=== PATIENT | female | born 1950 | race African-American/Black ===

== ENCOUNTER 2024-02-02 09:18 | Inpatient (IN) | payer MEDICARE ==
[~2024-02-02] VITALS: Ht 172.7 cm; Wt 75.7 kg
[2024-02-02 10:15] LABS: BASOPHILS % 0.4 % (0.0-2.0); EOSINOPHILS % 0.4 % (0.0-5.0); HEMATOCRIT. 35.6 % (36.0-48.0); HEMOGLOBIN. 11.8 g/dL (12.0-16.0); LYMPHOCYTES % 16.3 % (20.0-50.0); MEAN CORPUSCULAR HEMOGLOBIN 29.4 pg (28.0-32.0); MEAN CORPUSCULAR HGB CONC 33.1 g/dL (31.0-37.0); MEAN PLATELET VOLUME 7.4 fl (7.4-10.4); MONOCYTES % 10.5 % (2.0-8.0); NEUTROPHILS % 72.4 % (40.0-76.0); PLATELET 208 x1000/uL (130-400); WHITE BLOOD COUNT 8.1 x1000/uL (4.5-11.0)
[2024-02-02 10:25] LABS: D-DIMER 2.79 mg/L FEU (<0.50); PROTHROMBIN TIME 10.9 sec (9.6-11.0)
[2024-02-02 10:26] LABS: CHLORIDE 107 mEq/L (98-107); SODIUM 142 mEq/L (136-145)
[2024-02-02 10:27] LABS: CALCIUM 8.7 mg/dL (8.7-10.4); CARBON DIOXIDE 33 mEq/L (21-32)
[2024-02-02 10:32] LABS: CREATININE 0.7 mg/dL (0.6-1.0); GLUCOSE 149 mg/dL (70-105); UREA NITROGEN BLOOD 11 mg/dL (9-23)
[2024-02-02] MEDS: CEFTRIAXONE 1GM/50ML 50 ML IV NR (11:18)
[2024-02-02 11:28] LABS: CLARITY URINE TURBID (CLEAR); COLOR URINE DARK YELLOW (YELLOW); GLUCOSE URINE NEGATIVE (NEGATIVE); KETONES URINE TRACE (NEGATIVE); LEUKOCYTE ESTERASE URINE 1+ (NEGATIVE); NITRITE URINE NEGATIVE (NEGATIVE); OCCULT BLOOD URINE 2+ (NEGATIVE); PH URINE 5.5 (4.5-8.0); PROTEIN URINE 2+ (NEGATIVE)
[2024-02-02 11:31] LABS: BG BASE EXCESS 5.6 mmol/L (-2.0-3.0); BG CARBOXYHEMOGLOBIN 0.7 % (0.5-1.5); BG DEOXYHEMOGLOBIN 4.6 % (0.0-5.0); BG FRACTION INSPIRED OXYGEN 21; BG HCO3 ACT 29.9 mmol/L (21.0-28.0); BG METHEMOGLOBIN 0.3 % (0.5-1.5); BG OXYGEN SATURATION 95.4 % (94.0-98.0); BG OXYHEMOGLOBIN 94.4 % (94.0-98.0); BG PCO2 42.2 mmHg (32.0-45.0); BG PH 7.468 (7.350-7.450); BG PO2 74.3 mmHg (83.0-108.0); BG SAMPLE SITE LEFT RADIAL; BG TOTAL HEMOGLOBIN 12.7 g/dL (12.0-16.0); BG VENT MODE ROOM AIR
[2024-02-02 11:34] LABS: ALANINE AMINOTRANSFERASE 16 IU/L (10-49); ALBUMIN 3.5 g/dL (3.2-4.8); ASPARTATE AMINOTRANSFERASE 27 IU/L (<34); PROTEIN TOTAL 6.2 g/dL (6.0-8.3)
[2024-02-02 11:41] LABS: TROPONIN I HIGH SENSITIVITY 93 ng/L (3.0-34)
[2024-02-02 11:50] LABS: *AMPHETAMINES SCREEN URINE NEGATIVE (NEGATIVE); *BARBITURATES SCREEN URINE NEGATIVE (NEGATIVE); *BENZODIAZEPINES SCREEN URINE NEGATIVE (NEGATIVE); *COCAINE SCREEN URINE NEGATIVE (NEGATIVE); METHADONE URINE SCREEN NEGATIVE (NEGATIVE); OPIATES URINE SCREEN NEGATIVE (NEGATIVE)
[2024-02-02 11:51] LABS: CANNABINOID URINE SCREEN NEGATIVE (NEGATIVE); ECSTASY MDMA SCREEN URINE NEGATIVE (NEGATIVE); PHENCYCLIDINE URINE SCREEN NEGATIVE (NEGATIVE)
[2024-02-02] MEDS: AZITHROMYCIN 500MG/250ML 250 ML IV NR (11:56)
[2024-02-02 11:57] LABS: BACTERIA URINE 4+; MUCUS URINE 1+ /lpf (< = 2+); SQUAMOUS EPITHELIAL CELL URINE 3+ /lpf (RARE/1+)
[2024-02-02 11:59] LABS: RBC URINE 0-2 /hpf (0-2)
[2024-02-02] MEDS ORDERED: GUAIFENESIN 200MG/10ML SUGAR FREE UDC PO PRN (14:45)
[2024-02-02] MEDS ORDERED: CLONIDINE 0.1MG TABLET PO PRN (14:45)
[2024-02-02] MEDS ORDERED: ACETAMINOPHEN 325MG TABLET PO PRN (14:45)
[2024-02-02] MEDS ORDERED: IPRATROPIUM/ALBUTEROL 0.5-3(2.5)MG/3ML NEB HHN PRN (14:45)
[2024-02-02] MEDS ORDERED: FUROSEMIDE 40MG/4ML VIAL IVP ONE (17:30)
[2024-02-02] MEDS: FUROSEMIDE 20MG/2ML VIAL IVP SCH (17:45)
[2024-02-02] MEDS: AZITHROMYCIN 500 MG TABLET PO SCH (18:17)
[2024-02-02 22:10] VITALS: BP 155/87; PULSE 59; RESP 20; TEMP 35.9176
[2024-02-02] MEDS: FAMOTIDINE 20MG/2ML VIAL IV SCH (22:16)
[2024-02-03] VITALS: BP 152/90; PULSE 97; RESP 18; TEMP 35.89176; O2SAT 95
[2024-02-03 01:13] LABS: IRON 35 ug/dL (50-170)
[2024-02-03 01:14] LABS: TRIGLYCERIDE 61 mg/dL (0-150)
[2024-02-03 01:15] LABS: LDL CHOLESTEROL 30 mg/dL (5-100)
[2024-02-03 01:16] LABS: ALBUMIN 3.6 g/dL (3.2-4.8); CHOLESTEROL 86 mg/dL (<200); CREATINE KINASE 443 IU/L (34-145); HDL CHOLESTEROL 41 mg/dL (>65); TOTAL IRON BINDING CAPACITY 238 ug/dl (250-425)
[2024-02-03 01:17] LABS: T4 FREE 1.43 ng/dL (0.89-1.76)
[2024-02-03 01:18] LABS: THYROID STIMULATING HORMONE 1.02 uIU/mL (0.55-4.78)
[2024-02-03 01:43] LABS: TROPONIN I HIGH SENSITIVITY 91 ng/L (3.0-34)
[2024-02-03 04:00] VITALS: BP 143/83; PULSE 65; RESP 18; TEMP 35.89176; O2SAT 96
[2024-02-03 07:10] LABS: BASOPHILS % 0.6 % (0.0-2.0); EOSINOPHILS % 0.9 % (0.0-5.0); HEMATOCRIT. 37.9 % (36.0-48.0); HEMOGLOBIN. 12.3 g/dL (12.0-16.0); LYMPHOCYTES % 17.2 % (20.0-50.0); MEAN CORPUSCULAR HGB CONC 32.5 g/dL (31.0-37.0); MEAN CORPUSCULAR VOLUME 89.4 fL (81.0-99.0); MEAN PLATELET VOLUME 7.9 fl (7.4-10.4); MONOCYTES % 6.6 % (2.0-8.0); NEUTROPHILS % 74.7 % (40.0-76.0); PLATELET 230 x1000/uL (130-400); RED BLOOD CELL COUNT 4.24 mill/uL (4.2-5.4); RED CELL DISTRIBUTION WIDTH 14.5 % (11.6-14.6); WHITE BLOOD COUNT 7.7 x1000/uL (4.5-11.0)
[2024-02-03] MEDS: BLOOD SUGAR DIAGNOSTIC STRIP TEST SCH (07:12)
[2024-02-03 07:15] LABS: CHLORIDE 104 mEq/L (98-107); POTASSIUM 3.1 mEq/L (3.5-5.1); SODIUM 142 mEq/L (136-145)
[2024-02-03 07:16] LABS: CARBON DIOXIDE 33 mEq/L (21-32)
[2024-02-03 07:17] LABS: CALCIUM 8.6 mg/dL (8.7-10.4)
[2024-02-03 07:21] LABS: CREATININE 0.6 mg/dL (0.6-1.0); GLUCOSE 162 mg/dL (70-105); UREA NITROGEN BLOOD 12 mg/dL (9-23)
[2024-02-03 07:23] LABS: CREATINE KINASE 379 IU/L (34-145)
[2024-02-03 07:33] LABS: HEPATITIS B SURFACE ANTIGEN NEGATIVE (Negative)
[2024-02-03 07:54] LABS: HEPATITIS C AB NON REACTIVE (Neg) (Negative)
[2024-02-03 08:00] VITALS: BP 140/78; PULSE 87; RESP 18; TEMP 36.50292; O2SAT 98
[2024-02-03 08:04] LABS: TROPONIN I HIGH SENSITIVITY 92 ng/L (3.0-34)
[2024-02-03] MEDS: INSULIN LISPRO 100 UNITS/ML SUBCUT SCH (08:09)
[2024-02-03] MEDS ORDERED: CEFTRIAXONE 1GM/50ML 50 ML IV SCH (11:00)
[2024-02-03 12:00] VITALS: BP 143/84; PULSE 95; RESP 20; TEMP 36.114; O2SAT 100
[2024-02-03 16:00] VITALS: BP 125/84; PULSE 96; RESP 18; TEMP 36.16956; O2SAT 99
[2024-02-03] MEDS: POTASSIUM CHLORIDE 20MEQ TABLET SR PO NR (17:09)
[2024-02-03] MEDS: ASPIRIN 81MG TABLET PO SCH (17:09)
[2024-02-03] MEDS: CEFTRIAXONE 1GM/50ML 50 ML IV SCH (17:10)
[2024-02-03] MEDS: FUROSEMIDE 20MG/2ML VIAL IVP SCH (17:10)
[2024-02-03 20:44] VITALS: BP 137/78; PULSE 101; RESP 18; TEMP 36.16956; O2SAT 96
[2024-02-03] MEDS: INSULIN GLARGINE 100 UNITS/ML SUBCUT SCH (21:50)
[2024-02-03] MEDS: ATORVASTATIN CALCIUM 40MG TABLET PO SCH (21:57)
[2024-02-04 00:39] VITALS: BP 151/81; PULSE 100; RESP 18; TEMP 36.28068; O2SAT 98
[2024-02-04 04:00] VITALS: BP 128/73; PULSE 94; RESP 18; TEMP 36.16956; O2SAT 95
[2024-02-04 08:00] VITALS: BP 123/68; PULSE 93; RESP 18; TEMP 36.05844; O2SAT 97
[2024-02-04] MEDS: FERROUS SULFATE 325MG TABLET PO SCH (08:39)
[2024-02-04 09:22] LABS: CHLORIDE 105 mEq/L (98-107); POTASSIUM 3.3 mEq/L (3.5-5.1); SODIUM 144 mEq/L (136-145)
[2024-02-04 09:23] LABS: CARBON DIOXIDE 34 mEq/L (21-32)
[2024-02-04 09:28] LABS: CREATININE 0.8 mg/dL (0.6-1.0); GLUCOSE 63 mg/dL (70-105)
[2024-02-04 09:29] LABS: UREA NITROGEN BLOOD 12 mg/dL (9-23)
[2024-02-04 09:30] LABS: BASOPHILS % 0.7 % (0.0-2.0); EOSINOPHILS % 1.2 % (0.0-5.0); HEMATOCRIT. 36.1 % (36.0-48.0); HEMOGLOBIN. 11.6 g/dL (12.0-16.0); MEAN CORPUSCULAR HEMOGLOBIN 28.5 pg (28.0-32.0); MEAN CORPUSCULAR HGB CONC 32.1 g/dL (31.0-37.0); MEAN CORPUSCULAR VOLUME 88.6 fL (81.0-99.0); MEAN PLATELET VOLUME 7.8 fl (7.4-10.4); MONOCYTES % 9.4 % (2.0-8.0); NEUTROPHILS % 65.7 % (40.0-76.0); PLATELET 262 x1000/uL (130-400); RED BLOOD CELL COUNT 4.07 mill/uL (4.2-5.4); RED CELL DISTRIBUTION WIDTH 14.3 % (11.6-14.6); WHITE BLOOD COUNT 7.6 x1000/uL (4.5-11.0)
[2024-02-04] MEDS: POTASSIUM CHLORIDE 20MEQ TABLET SR PO SCH (11:39)
[2024-02-04 12:00] VITALS: BP 139/76; PULSE 95; RESP 20; TEMP 36.72516; O2SAT 98
[2024-02-04] MEDS ORDERED: VERAPAMIL HCL 2.5 MG/1 ML 2ML VIAL IV ONE (12:07)
[2024-02-04] MEDS ORDERED: FENTANYL CITRATE/PF 50MCG/ML 2ML VIAL ONE (12:08)
[2024-02-04] MEDS ORDERED: LIDOCAINE HCL 1% 20ML VIAL ONE (12:08)
[2024-02-04] MEDS ORDERED: MIDAZOLAM HCL 2 MG/2 ML VIAL ONE (12:08)
[2024-02-04] MEDS ORDERED: IODIXANOL 320MG/ML 100 ML BOTTLE IV ONE (12:08)
[2024-02-04] MEDS ORDERED: HEPARIN 1000 UNITS/ML 10ML ONE (12:08)
[2024-02-04] MEDS ORDERED: DIPHENHYDRAMINE 50MG/ML VIAL ONE (12:15)
[2024-02-04] MEDS ORDERED: ATROPINE SULFATE 1MG/10ML SYR IV PRN (13:00)
[2024-02-04] MEDS ORDERED: ACETAMINOPHEN 325MG TABLET PO PRN (13:00)
[2024-02-04] MEDS: DEXTROSE 50% WATER 50ML SYRINGE IV PRN (13:48)
[2024-02-04] MEDS: POTASSIUM CHLORIDE 20MEQ TABLET SR PO NR (15:28)
[2024-02-04 16:00] VITALS: BP 136/86; PULSE 97; RESP 20; TEMP 36.28068; O2SAT 100
[2024-02-04 20:00] VITALS: BP 143/89; PULSE 85; RESP 18; TEMP 36.61404; O2SAT 99
[2024-02-05] VITALS: BP 130/87; PULSE 101; RESP 18; TEMP 36.61404; O2SAT 99
[2024-02-05 04:00] VITALS: BP 130/78; PULSE 96; RESP 18; TEMP 36.61404; O2SAT 96
[2024-02-05 05:59] LABS: CALCIUM 8.5 mg/dL (8.7-10.4); CARBON DIOXIDE 32 mEq/L (21-32); CHLORIDE 107 mEq/L (98-107); POTASSIUM 4.3 mEq/L (3.5-5.1); SODIUM 143 mEq/L (136-145)
[2024-02-05 06:05] LABS: CREATININE 0.8 mg/dL (0.6-1.0); GLUCOSE 113 mg/dL (70-105); UREA NITROGEN BLOOD 12 mg/dL (9-23)
[2024-02-05 06:08] LABS: BASOPHILS % 0.9 % (0.0-2.0); EOSINOPHILS % 1.4 % (0.0-5.0); HEMATOCRIT. 34.7 % (36.0-48.0); HEMOGLOBIN. 11.3 g/dL (12.0-16.0); LYMPHOCYTES % 20.7 % (20.0-50.0); MEAN CORPUSCULAR HEMOGLOBIN 28.8 pg (28.0-32.0); MEAN CORPUSCULAR HGB CONC 32.5 g/dL (31.0-37.0); MEAN CORPUSCULAR VOLUME 88.6 fL (81.0-99.0); MONOCYTES % 9.7 % (2.0-8.0); NEUTROPHILS % 67.3 % (40.0-76.0); PLATELET 221 x1000/uL (130-400); RED BLOOD CELL COUNT 3.91 mill/uL (4.2-5.4); RED CELL DISTRIBUTION WIDTH 14.4 % (11.6-14.6)
[2024-02-05 08:00] VITALS: BP 141/89; PULSE 101; RESP 18; TEMP 36.61404; O2SAT 93
[2024-02-05] MEDS: METOPROLOL SUCCINATE 25MG ER TABLET PO SCH (09:51)
[2024-02-05] MEDS: MAGNESIUM 1 G PREMIX 100 ML IV NR (09:51)
[2024-02-05] MEDS ORDERED: NITR100C MT (10:46)
[2024-02-05] MEDS ORDERED: PROT20 MT (10:46)
[2024-02-05] MEDS ORDERED: SUCR1TAB MT (10:46)
[2024-02-05] MEDS: ONDANSETRON HCL 4MG/2ML INJ IV PRN (10:47)
[2024-02-05] MEDS ORDERED: METO-396 MT (10:57)
[2024-02-05] MEDS ORDERED: ATOR20TA65 MT (10:57)
[2024-02-05] MEDS ORDERED: FURO-152 MT (10:57)
[2024-02-05] MEDS ORDERED: ASPI-1497 MT (10:57)
[2024-02-05 12:00] VITALS: BP 154/99; PULSE 96; RESP 20; TEMP 37.16964; O2SAT 96
[2024-02-05 13:39] VITALS: BP 154/99; PULSE 96; TEMP 99; O2SAT 96
[2024-02-05 16:00] VITALS: BP 127/73; PULSE 95; RESP 20; TEMP 36.50292; O2SAT 95
[2024-02-06 13:06] LABS: MICROALBUMIN URINE 21.6 ug/mL (Not Estab.)
== END 2024-02-05 16:20 | disposition home or self-care (01) | DRG 280 ==
LOC: ER 10:07 → 5WST 10:52 → EDBEDREQTM 10:57 → EDBEDREQ 10:57 → 7WST 21:42
PROVIDERS: ADMIT Internal Medicine; ATTEND Internal Medicine
PROC: B2111ZZ Fluoroscopy of Multiple Coronary Arteries using Low Osmolar Contrast (ICD-10-PCS; principal; 2024-02-04)
PROC: 4A023N7 Measurement of Cardiac Sampling and Pressure, Left Heart, Percutaneous Approach (ICD-10-PCS; 2024-02-04)
PROC: B34HZZZ Ultrasonography of Right Upper Extremity Arteries (ICD-10-PCS; 2024-02-04)
DX: I11.0 Hypertensive heart disease with heart failure (principal); I50.23 Acute on chronic systolic (congestive) heart failure; I21.A1 Myocardial infarction type 2; J18.9 Pneumonia, unspecified organism; N39.0 Urinary tract infection, site not specified; I42.8 Other cardiomyopathies; E87.6 Hypokalemia; E11.65 Type 2 diabetes mellitus with hyperglycemia; D64.9 Anemia, unspecified; I25.10 Atherosclerotic heart disease of native coronary artery without angina pectoris; Z90.49 Acquired absence of other specified parts of digestive tract
CPT/HCPCS: 36415; 36600; 71045; 76770; 80048; 80061; 80305; 81003; 82040; 82043; 82375; 82550; 82575; 82728; 82805; 82962; 83036; 83540; 83550; 83735; 83880; 84155; 84439; 84443; 84450; 84460; 84484; 85025; 85379; 85651; 86705; 87077; 87186; 87340; 93005; 93306; 93458; 93970; 97162; 97166; 99285; C1769; C1887; C1893; J0456; J0696; J1200; J1644; J1815; J1940; J2250; J2405; J3010; J3475; J3490; Q9967

== ENCOUNTER 2024-04-18 12:30 | Inpatient (IN) | payer MEDICARE ==
[~2024-04-18] VITALS: Ht 175.3 cm; Wt 98.0 kg
[~2024-04-18 12:30] MED LIST: ASPI-1497 MT; ATOR20TA65 MT; FURO-152 MT; METO-396 MT; NITR100C MT; PROT20 MT
[2024-04-18 13:33] LABS: BASOPHILS % 0.7 % (0.0-2.0); EOSINOPHILS % 1.3 % (0.0-5.0); HEMATOCRIT. 36.9 % (36.0-48.0); HEMOGLOBIN. 11.7 g/dL (12.0-16.0); LYMPHOCYTES % 18.2 % (20.0-50.0); MEAN CORPUSCULAR HEMOGLOBIN 28.1 pg (28.0-32.0); MEAN CORPUSCULAR HGB CONC 31.7 g/dL (31.0-37.0); MEAN CORPUSCULAR VOLUME 88.6 fL (81.0-99.0); MEAN PLATELET VOLUME 7.7 fl (7.4-10.4); MONOCYTES % 10.8 % (2.0-8.0); PLATELET 259 x1000/uL (130-400); RED BLOOD CELL COUNT 4.17 mill/uL (4.2-5.4); RED CELL DISTRIBUTION WIDTH 15.8 % (11.6-14.6); WHITE BLOOD COUNT 7.5 x1000/uL (4.5-11.0)
[2024-04-18 13:40] LABS: CHLORIDE 108 mEq/L (98-107); POTASSIUM 3.6 mEq/L (3.5-5.1); SODIUM 143 mEq/L (136-145)
[2024-04-18 13:41] LABS: CARBON DIOXIDE 31 mEq/L (21-32)
[2024-04-18 13:42] LABS: CALCIUM 8.9 mg/dL (8.7-10.4)
[2024-04-18 13:46] LABS: CREATININE 0.7 mg/dL (0.6-1.0); GLUCOSE 153 mg/dL (70-105)
[2024-04-18 13:47] LABS: UREA NITROGEN BLOOD 13 mg/dL (9-23)
[2024-04-18 13:53] LABS: PROTHROMBIN TIME 10.8 sec (9.6-11.0)
[2024-04-18 14:03] LABS: TROPONIN I HIGH SENSITIVITY 52 ng/L (3.0-34)
[2024-04-18] MEDS: FUROSEMIDE 40MG/4ML VIAL IVP NR (14:44)
[2024-04-18 16:00] VITALS: BP 166/100; PULSE 86; RESP 16; TEMP 36.3624
[2024-04-18 17:00] VITALS: BP 166/100; PULSE 86; RESP 16; TEMP 36.33624; O2SAT 100
[2024-04-18] MEDS ORDERED: DEXTROSE 50% WATER 50ML SYRINGE IV PRN (18:45)
[2024-04-18] MEDS: METOLAZONE 2.5MG TABLET PO NR (19:26)
[2024-04-18 20:00] VITALS: BP 173/94; PULSE 98; RESP 16; TEMP 36.28068; O2SAT 95
[2024-04-18] MEDS: BLOOD SUGAR DIAGNOSTIC STRIP TEST SCH (20:48)
[2024-04-18] MEDS: INSULIN LISPRO 100 UNITS/ML SUBCUT SCH (21:46)
[2024-04-18] MEDS: CARVEDILOL 12.5MG TABLET PO SCH (21:51)
[2024-04-18 23:17] VITALS: BP 150/86; PULSE 93; RESP 17; TEMP 36.3918; O2SAT 100
[2024-04-19 00:05] VITALS: BP 144/87; PULSE 86; RESP 20; TEMP 36.6696; O2SAT 97
[2024-04-19 04:00] VITALS: BP 141/87; PULSE 80; RESP 18; TEMP 36.55848; O2SAT 98
[2024-04-19 08:00] VITALS: BP 157/89; PULSE 83; RESP 18; TEMP 36.61404; O2SAT 96
[2024-04-19] MEDS: ENOXAPARIN 30MG/0.3ML SYR SUBCUT SCH (08:52)
[2024-04-19] MEDS: FUROSEMIDE 100MG/10ML VIAL IVP SCH (08:52)
[2024-04-19] MEDS: LOSARTAN 50 MG TABLET PO SCH (08:53)
[2024-04-19 12:00] VITALS: BP 110/63; PULSE 68; RESP 18; TEMP 36.72516; O2SAT 97
[2024-04-19 13:51] LABS: BASOPHILS % 0.5 % (0.0-2.0); EOSINOPHILS % 1.4 % (0.0-5.0); HEMATOCRIT. 36.2 % (36.0-48.0); HEMOGLOBIN. 11.5 g/dL (12.0-16.0); LYMPHOCYTES % 13.1 % (20.0-50.0); MEAN CORPUSCULAR HEMOGLOBIN 28.2 pg (28.0-32.0); MEAN CORPUSCULAR HGB CONC 31.6 g/dL (31.0-37.0); MONOCYTES % 9.4 % (2.0-8.0); NEUTROPHILS % 75.6 % (40.0-76.0); PLATELET 233 x1000/uL (130-400); RED BLOOD CELL COUNT 4.06 mill/uL (4.2-5.4); RED CELL DISTRIBUTION WIDTH 15.5 % (11.6-14.6); WHITE BLOOD COUNT 7.3 x1000/uL (4.5-11.0)
[2024-04-19 14:03] LABS: TRIGLYCERIDE 43 mg/dL (0-150)
[2024-04-19 14:04] LABS: LDL CHOLESTEROL 30 mg/dL (5-100)
[2024-04-19 14:05] LABS: CHOLESTEROL 81 mg/dL (<200); HDL CHOLESTEROL 36 mg/dL (>65)
[2024-04-19 16:00] VITALS: BP 147/80; PULSE 77; RESP 18; TEMP 36.61404; O2SAT 96
[2024-04-19 20:00] VITALS: BP 136/67; PULSE 82; RESP 20; TEMP 36.22512; O2SAT 94
[2024-04-20] VITALS: BP 136/84; PULSE 85; RESP 20; TEMP 36.22512; O2SAT 93
[2024-04-20 01:06] LABS: CREATINE KINASE 48 IU/L (34-145)
[2024-04-20 01:10] LABS: TROPONIN I HIGH SENSITIVITY 44 ng/L (3.0-34)
[2024-04-20 04:00] VITALS: BP 113/59; PULSE 80; RESP 20; TEMP 36.28068; O2SAT 94
[2024-04-20 07:06] LABS: CREATINE KINASE 39 IU/L (34-145)
[2024-04-20 07:44] LABS: TROPONIN I HIGH SENSITIVITY 42 ng/L (3.0-34)
[2024-04-20 08:00] VITALS: BP 137/69; PULSE 83; RESP 18; TEMP 36.72516; O2SAT 93
[2024-04-20 12:00] VITALS: BP 135/72; PULSE 78; RESP 18; TEMP 36.33624; O2SAT 94
[2024-04-20 16:00] VITALS: BP 143/77; PULSE 84; RESP 20; TEMP 37.28076; O2SAT 94
[2024-04-20 20:00] VITALS: BP 151/84; PULSE 85; RESP 17; TEMP 36.89184; O2SAT 96
[2024-04-21] VITALS: BP 139/77; PULSE 81; RESP 18; TEMP 36.72516; O2SAT 96
[2024-04-21 04:00] VITALS: BP 123/55; PULSE 84; RESP 18; TEMP 36.83628; O2SAT 95
[2024-04-21 08:00] VITALS: BP 147/79; PULSE 83; RESP 18; TEMP 37.11408; O2SAT 96
[2024-04-21 12:00] VITALS: BP 126/53; PULSE 82; RESP 20; TEMP 37.05852; O2SAT 98
[2024-04-21 16:00] VITALS: BP 123/54; PULSE 80; RESP 17; TEMP 37.05852; O2SAT 92
[2024-04-21 20:00] VITALS: BP 130/68; PULSE 79; RESP 20; TEMP 36.6696; O2SAT 98
[2024-04-22] VITALS: BP 142/70; PULSE 80; RESP 20; TEMP 36.114; O2SAT 97
[2024-04-22 08:00] VITALS: BP 158/84; PULSE 78; RESP 18; TEMP 36.50292; O2SAT 95
[2024-04-22 11:34] LABS: CLARITY URINE CLOUDY (CLEAR); COLOR URINE YELLOW (YELLOW); GLUCOSE URINE NEGATIVE (NEGATIVE); KETONES URINE NEGATIVE (NEGATIVE); LEUKOCYTE ESTERASE URINE 2+ (NEGATIVE); NITRITE URINE POSITIVE (NEGATIVE); OCCULT BLOOD URINE 2+ (NEGATIVE); PROTEIN URINE 1+ (NEGATIVE); SPECIFIC GRAVITY URINE 1.015 (1.005-1.030)
[2024-04-22 12:00] VITALS: BP 163/83; PULSE 78; RESP 17; TEMP 37.11408; O2SAT 96
[2024-04-22 13:41] LABS: SQUAMOUS EPITHELIAL CELL URINE 1+ /lpf (RARE/1+)
[2024-04-22 13:42] LABS: BACTERIA URINE 4+; RBC URINE 0-2 /hpf (0-2); WBC URINE 50-100 /hpf (0-2)
[2024-04-22 16:00] VITALS: BP 148/80; PULSE 80; RESP 18; TEMP 36.89184; O2SAT 94
[2024-04-22 17:39] LABS: CHLORIDE 100 mEq/L (98-107); POTASSIUM 3.5 mEq/L (3.5-5.1); SODIUM 142 mEq/L (136-145)
[2024-04-22 17:40] LABS: CARBON DIOXIDE 39 mEq/L (21-32)
[2024-04-22 17:41] LABS: CALCIUM 8.8 mg/dL (8.7-10.4)
[2024-04-22 17:45] LABS: CREATININE 0.8 mg/dL (0.6-1.0); GLUCOSE 154 mg/dL (70-105)
[2024-04-22 17:46] LABS: UREA NITROGEN BLOOD 19 mg/dL (9-23)
[2024-04-22 17:48] LABS: PHOSPHORUS 2.9 mg/dL (2.5-4.9)
[2024-04-22 20:00] VITALS: BP 152/87; PULSE 66; RESP 18; TEMP 36.3918; O2SAT 99
[2024-04-23] VITALS: BP 134/75; PULSE 76; RESP 18; TEMP 36.55848; O2SAT 99
[2024-04-23 04:00] VITALS: BP 152/83; PULSE 88; RESP 19; TEMP 36.44736; O2SAT 99
[2024-04-23 07:13] LABS: CHLORIDE 101 mEq/L (98-107); POTASSIUM 3.1 mEq/L (3.5-5.1); SODIUM 141 mEq/L (136-145)
[2024-04-23 07:14] LABS: CALCIUM 8.4 mg/dL (8.7-10.4); CARBON DIOXIDE 33 mEq/L (21-32)
[2024-04-23 07:16] LABS: BASOPHILS % 0.7 % (0.0-2.0); EOSINOPHILS % 1.9 % (0.0-5.0); HEMATOCRIT. 33.3 % (36.0-48.0); HEMOGLOBIN. 11.1 g/dL (12.0-16.0); LYMPHOCYTES % 14.7 % (20.0-50.0); MEAN CORPUSCULAR HEMOGLOBIN 29.9 pg (28.0-32.0); MEAN CORPUSCULAR HGB CONC 33.4 g/dL (31.0-37.0); MEAN CORPUSCULAR VOLUME 89.8 fL (81.0-99.0); MEAN PLATELET VOLUME 8.2 fl (7.4-10.4); MONOCYTES % 11.5 % (2.0-8.0); NEUTROPHILS % 71.2 % (40.0-76.0); PLATELET 203 x1000/uL (130-400); RED BLOOD CELL COUNT 3.71 mill/uL (4.2-5.4); RED CELL DISTRIBUTION WIDTH 15.4 % (11.6-14.6); WHITE BLOOD COUNT 6.7 x1000/uL (4.5-11.0)
[2024-04-23 07:19] LABS: CREATININE 0.7 mg/dL (0.6-1.0); GLUCOSE 167 mg/dL (70-105); UREA NITROGEN BLOOD 15 mg/dL (9-23)
[2024-04-23] MEDS ORDERED: MAGNESIUM 2 G PREMIX 50 ML IV SCH (07:30)
[2024-04-23 08:00] VITALS: BP 152/72; PULSE 76; RESP 18; TEMP 36.44736; O2SAT 91
[2024-04-23] MEDS: POTASSIUM CHLORIDE 20MEQ TABLET SR PO SCH (08:21)
[2024-04-23] MEDS: MAGNESIUM 2 G PREMIX 50 ML IV NR (08:29)
[2024-04-23 12:00] VITALS: BP 142/77; PULSE 73; RESP 20; TEMP 36.33624; O2SAT 93
[2024-04-23] MEDS ORDERED: COR12 PO (13:43)
[2024-04-23] MEDS ORDERED: LOSA50TA41 PO (13:43)
[2024-04-23] MEDS ORDERED: POTA-354 MT (13:55)
[2024-04-23] MEDS ORDERED: FURO-152 MT (13:55)
[2024-04-23 16:00] VITALS: BP 149/76; PULSE 74; RESP 22; TEMP 36.114; TEMP 36.11400; O2SAT 96
[2024-04-23 16:01] VITALS: BP 142/77; PULSE 73; TEMP 97.4; O2SAT 94
== END 2024-04-23 18:07 | disposition home or self-care (01) | DRG 291 ==
LOC: ER 12:30 → 5WST 13:55 → EDBEDREQ 13:58 → EDBEDREQTM 13:58 → 8WST 23:40
PROVIDERS: ADMIT Internal Medicine; ATTEND Internal Medicine
DX: I11.0 Hypertensive heart disease with heart failure (principal); I50.23 Acute on chronic systolic (congestive) heart failure; E11.9 Type 2 diabetes mellitus without complications; I42.2 Other hypertrophic cardiomyopathy; R79.89 Other specified abnormal findings of blood chemistry; R06.03 Acute respiratory distress
CPT/HCPCS: 36415; 71045; 80048; 80061; 81003; 82550; 82962; 83735; 83880; 84100; 84484; 85025; 93005; 97162; 97166; 97535; 99291; J1650; J1815; J1940; J3475